=== PATIENT | male | born 1970 ===

== ENCOUNTER → 2022-06-06 11:01 | Outpatient (BNVA) | payer OTHER, SELFPAY | PROVIDERS: Visit Provider Internal Medicine Rheumatology | DX: R76.8 Other specified abnormal immunological findings in serum (principal); M25.531 Pain in right wrist; M25.532 Pain in left wrist; M25.521 Pain in right elbow; I69.398 Other sequelae of cerebral infarction; R20.0 Anesthesia of skin; R20.2 Paresthesia of skin | CPT/HCPCS: 99202 ==